=== PATIENT | male | born 1990 | race African-American/Black ===

== ENCOUNTER 2017-01-27 07:03 | Day surgery (SDC) | payer OTHER ==
[~2017-01-27] VITALS: Ht 188 cm; Wt 98.9 kg
[2017-01-27] MEDS ORDERED: BUPIVACAINE-MPF 0.25% 30 ML VIAL INJ ONE (10:47)
[2017-01-27] MEDS ORDERED: DEXAMETHASONE 4 MG/ML VIAL ONE (11:00)
[2017-01-27] MEDS ORDERED: KETOROLAC 60 MG/2 ML VIAL IM ONE (11:00)
[2017-01-27] MEDS ORDERED: ONDANSETRON 4 MG/2 ML VIAL ONE (11:00)
[2017-01-27] MEDS ORDERED: PROPOFOL 200 MG/20 ML VIAL IV ONE (11:00)
[2017-01-27] MEDS ORDERED: SEVOFLURANE 250 ML BTL INH ONE (11:00)
[2017-01-27] MEDS ORDERED: ceFAZolin 1,000 MG VIAL ONE (11:14)
[2017-01-27] MEDS ORDERED: fentaNYL 0.05 MG/ML VIAL ONE (11:26)
[2017-01-27] MEDS ORDERED: MORPHINE SULFATE 4 MG/ML SYR ONE ×2 (11:26→13:37)
[2017-01-27] MEDS ORDERED: MIDAZOLAM 2 MG/2 ML VIAL ONE (11:26)
[2017-01-27] MEDS ORDERED: MORPHINE SULFATE 2 MG/ML SYR IVP PRN ×2 (12:05→14:35)
[2017-01-27] MEDS ORDERED: METOCLOPRAMIDE 10 MG/2 ML INJ VIAL IVP PRN (12:05)
[2017-01-27] MEDS ORDERED: MORPHINE SULFATE 4 MG/ML SYR IVP PRN ×3 (12:05→14:35)
[2017-01-27] MEDS ORDERED: MIDAZOLAM 2 MG/2 ML VIAL IV ONE (12:05)
== END 2017-01-27 15:05 | disposition home or self-care (01) ==
LOC: MDS 07:03 → MMU 07:04 → MDS 15:05
PROVIDERS: ATTEND Surgery
DX: K40.90 Unilateral inguinal hernia, without obstruction or gangrene, not specified as recurrent (principal)
CPT/HCPCS: 49505; 71010; J0690; J1100; J1885; J2250; J2270; J2405; J2704; J3010; J3490; J7060; J7120